=== PATIENT | male | born 1980 | race Caucasian/White ===

== ENCOUNTER 2018-08-23 10:27 | Emergency (ER) | payer OTHER ==
[2018-08-23] MEDS ORDERED: SODIUM CHLORIDE 0.9% 1,000 ML IV ONE (11:37)
[2018-08-23] MEDS ORDERED: fentaNYL 100 MCG/2 ML VIAL IVP STA (11:37)
[2018-08-23] MEDS ORDERED: ONDANSETRON 4 MG/2 ML VIAL IVP STA (11:37)
--- NOTE | 2018-08-23 11:50 | XRAY Report ---
Reason: injury Procedure Date: 08/23/2018 Accession Number: [id number] / [id number] Procedure: XR - Knee 2 View LT CPT Code: FULL RESULT: EXAM: LEFT KNEE RADIOGRAPHY EXAM DATE: 08/23/2018 11:21 AM. CLINICAL HISTORY: Left knee pain. COMPARISON: None. TECHNIQUE: 3 views. FINDINGS: Bones: Normal. No fractures or bone lesions. Joints: Normal. No effusion. No subluxations. Soft Tissues: Normal. No soft tissue swelling. IMPRESSION: Normal knee radiography. RADIA
--- NOTE | 2018-08-23 11:51 | XRAY Report ---
Reason: left rib pain Procedure Date: 08/23/2018 Accession Number: [id number] / [id number] Procedure: XR - Ribs w/PA Chest LT CPT Code: FULL RESULT: EXAM: LEFT RIB RADIOGRAPHY EXAM DATE: 08/23/2018 11:21 AM. CLINICAL HISTORY: LEFT rib pain. COMPARISON: None. TECHNIQUE: 1 view of the chest and 2 views of the ribs. FINDINGS: Bones: No displaced fracture or bone lesion. Lungs: No focal opacities. No pneumothorax. No pleural effusions. Mediastinum: Heart and mediastinal contours are unremarkable. Other: None. IMPRESSION: No displaced rib fracture or acute cardiopulmonary abnormality. RADIA
[2018-08-23 11:59] LABS: BASOPHILS # (AUTO) 0.1 10^3/uL (0.0-0.1); BASOPHILS % (AUTO) 0.8 %; EOSINOPHILS # (AUTO) 0.2 10^3/uL (0.0-0.7); EOSINOPHILS % (AUTO) 2.4 %; HGB - HEMOGLOBIN 15.9 g/dL (14.0-18.0); LYMPHOCYTES # (AUTO) 1.6 10^3/uL (1.5-3.5); LYMPHOCYTES % (AUTO) 17.6 %; MEAN CORPUSCULAR HGB CONC 35.3 g/dL (32.0-36.0); MEAN CORPUSCULAR VOLUME 87.8 fL (80.0-94.0); MEAN PLATELET VOLUME 9.1 fL (7.4-11.4); MONOCYTES # (AUTO) 0.8 10^3/uL (0.0-1.0); MONOCYTES % (AUTO) 8.6 %; NEUTROPHILS # (AUTO) 6.3 10^3/uL (1.5-6.6); NEUTROPHILS % (AUTO) 70.6 %; PLT - PLATELET COUNT 258 10^3/uL (130-450); RED BLOOD COUNT 5.12 10^6/uL (4.70-6.10); RED CELL DISTRIBUTION WIDTH 13.4 % (12.0-15.0)
[2018-08-23 12:08] LABS: ALBUMIN 4.6 g/dL (3.2-5.5); ALBUMIN/GLOBULIN RATIO 1.5 (1.0-2.2); BILIRUBIN,TOTAL 0.9 mg/dL (0.2-1.0); CALCIUM 8.9 mg/dL (8.5-10.3); CREATININE 0.9 mg/dL (0.6-1.2); TOTAL PROTEIN 7.6 g/dL (6.7-8.2)
[2018-08-23] MEDS ORDERED: IOPAMIDOL-300 100 ML VIAL ONE (12:10)
--- NOTE | 2018-08-23 12:11 | ED Physician Documentation ---
PD HPI Fall - Stated complaint Stated Complaint: L SIDE/KNEE INJ - Chief complaint Chief Complaint: General - History obtained from History obtained from: Patient - Additional information Additional information: 37-year-old male presents to the emergency department with left lower chest and left upper abdominal pain and left knee pain after falling off a ladder. The patient's ladder malfunctioned and the patient came crashing down and subsequently landed on his left lower chest/upper abdomen. No reports of head or neck injury or upper extremity trauma. Symptoms are described as moderate. The patient reports no nausea or vomiting. No other associated symptoms. No relieving factors. Review of Systems Constitutional: denies: Fever Eyes: denies: Discharge Ears: denies: Ear pain Throat: denies: Sore throat Cardiac: reports: Chest pain / pressure Respiratory: denies: Cough, Hemoptysis, Wheezing GI: reports: Abdominal Pain. denies: Nausea, Vomiting : denies: Dysuria Skin: denies: Rash Musculoskeletal: reports: Extremity pain. denies: Neck pain, Back pain, Extremity swelling Neurologic: denies: Generalized weakness Immunocompromised: denies: Chemotherapy PD PAST MEDICAL HISTORY - Past Medical History Past Medical History: Yes Neuro: Migraines GI: GERD - Present Medications Home Medications: Ambulatory Orders Medication Instructions Recorded Confirmed Butalb/Acetaminophen/Caffeine 1 each PO DAILY PRN 08/23/18 08/23/18 [Fioricet 50-300-40 mg Capsule] HYDROcod/ACETAM 5/325 [Sandy 5/325] 1 each PO Q6H PRN #15 tablet 08/23/18 Naproxen [Naprosyn] 500 mg PO BID PRN 30 Days #30 08/23/18 tablet Omeprazole Magnesium [Prilosec] 10 mg PO DAILY 08/23/18 08/23/18 - Allergies Allergies/Adverse Reactions: Allergies Allergy/AdvReac Type Severity Reaction Status Date / Time No Known Drug Allergies Allergy Verified 08/23/18 10:52 - Social History Does the pt smoke?: No Smoking Status: Never smoker Does the pt drink ETOH?: Yes Does the pt have substance abuse?: No - Immunizations Immunizations are current?: Yes PD ED PE NORMAL - General General: Alert and oriented X 3 - HEENT HEENT: Atraumatic, PERRL, EOMI, Ears normal, Moist mucous membranes - Neck Neck: No bony TTP - Cardiac Cardiac: RRR, Strong equal pulses - Respiratory Respiratory: No respiratory distress, Clear bilaterally - Abdomen Abdomen: Non tender - Back Back: No CVA TTP - Derm Derm: Normal color - Extremities Extremities: No deformity, Normal ROM s pain. No: No tenderness to palpate (The patient is tender to palpation in the left knee, there is no crepitus or obvious deformity. Normal range of motion of bilateral hips ankles and feet.), No edema - Neuro Neuro: Alert and oriented X 3, Normal speech - Psych Psych: Normal mood PD ED PE EXPANDED - Abdomen Abdomen: Tender to palpation Abdomen Visual: 1 - tenderness (The patient has significant tenderness over this area, there is no crepitus or subcutaneous emphysema. The patient is tender over the spleen. No rebound or peritoneal signs) Results - Vitals Vitals: Vital Signs - 24 hr 08/23/18 08/23/18 10:49 13:09 Temperature 36.6 C 36.2 C L Heart Rate 80 74 Respiratory 16 16 Rate Blood Pressure 140/74 H 128/79 O2 Saturation 100 99 Oxygen O2 Source Room air - Labs Labs: Laboratory Tests 08/23/18 08/23/18 11:52 11:52 WBC 9.0 RBC 5.12 Hgb 15.9 Hct 45.0 MCV 87.8 MCH 31.0 MCHC 35.3 RDW 13.4 Plt Count 258 MPV 9.1 Neut # (Auto) 6.3 Lymph # (Auto) 1.6 [place] # (Auto) 0.8 Eos # (Auto) 0.2 Baso # (Auto) 0.1 Absolute Nucleated RBC 0.00 Nucleated RBC % 0.0 Sodium 136 Potassium 3.6 Chloride 100 L Carbon Dioxide 27 Anion Gap 9.0 BUN 14 Creatinine 0.9 Estimated GFR (MDRD) 95 Glucose 99 Calcium 8.9 Total Bilirubin 0.9 AST 36 ALT 50 Alkaline Phosphatase 63 Total Protein 7.6 Albumin 4.6 Globulin 3.0 Albumin/Globulin Ratio 1.5 Lipase 31 - Rads (name of study) Knee Radiology: Final report received CT abd/pelvis Radiology: Final report received, See rad report PD MEDICAL DECISION MAKING - ED course ED course: The patient's workup shows an acute rib fracture, the patient appears appropriate for ongoing outpatient management. The patient will be given an incentive spirometer in the emergency department. The patient will be discharged home with pain control. I discussed warning signs and recommended returning to the emergency department immediately for any worsening or any concerns. Departure - Departure Disposition: 01 Home, Self Care Clinical Impression: Rib fracture Qualifiers: Encounter type: initial encounter Rib fracture type: single rib Fracture type: closed Laterality: left Qualified Code(s): S22.32XA - Fracture of one rib, left side, initial encounter for closed fracture Abdominal wall contusion Qualifiers: Encounter type: initial encounter Qualified Code(s): S30.1XXA - Contusion of abdominal wall, initial encounter Knee contusion Qualifiers: Encounter type: initial encounter Laterality: left Qualified Code(s): S80.02XA - Contusion of left knee, initial encounter Fall Qualifiers: Encounter type: initial encounter Qualified Code(s): W19.XXXA - Unspecified fall, initial encounter Condition: Good Instructions: ED Contusion Soft Tissue, ED Fx Rib Prescriptions: HYDROcod/ACETAM 5/325 [Sandy 5/325] 1 each PO Q6H PRN #15 tablet PRN Reason: Pain Naproxen [Naprosyn] 500 mg PO BID PRN 30 Days #30 tablet PRN Reason: Pain Comments: Please follow-up with primary care for recheck and reevaluation. Please return to the emergency department immediately for worsening symptoms or any concerns.
[2018-08-23 13:10] VITALS: BP 128/79
--- NOTE | 2018-08-23 13:12 | CT Report ---
Reason: LUQ pain, fall off ladder Procedure Date: 08/23/2018 Accession Number: [id number] / [id number] Procedure: CT - Abdomen/Pelvis W/ CPT Code: FULL RESULT: EXAM: CT ABDOMEN AND PELVIS EXAM DATE: 08/23/2018 12:21 PM. CLINICAL HISTORY: LUQ pain, fall off ladder. COMPARISONS: None. TECHNIQUE: Routine helical CT imaging was performed through the abdomen and pelvis. IV contrast: ISOVUE 300 100mL. Enteric contrast: No. Reconstructions: Coronal and sagittal. In accordance with CT protocol optimization, one or more of the following dose reduction techniques were utilized for this exam: automated exposure control, adjustment of mA and/or KV based on patient size, or use of iterative reconstructive technique. FINDINGS: Lung Bases: Clear. Normal heart size. No pericardial effusion. Liver: Normal. No masses. Gallbladder/Bile Ducts: Unremarkable. Spleen: Normal. Pancreas: Normal. Adrenal Glands: Normal. Kidneys: Normal. No masses or hydronephrosis. Peritoneal Cavity/Bowel: Mild sigmoid diverticulosis. No free fluid, free air or adenopathy. No masses or acute inflammatory process. The appendix is well visualized and normal. Pelvic Organs: Normal. The bladder and visualized pelvic organs are within normal limits. Vasculature: No aneurysms or other significant abnormality. Bones: There is a nondisplaced fracture of the lateral left seventh rib underlying the metallic BB skin marker indicating the patient's reported area of focal pain. Bone island right femoral head. Other: None. IMPRESSION: Nondisplaced lateral left seventh rib fracture. RADIA
[2018-08-25] MEDS ORDERED: IOPAMIDOL-300 100 ML VIAL IVP ONE (13:59)
== END 2018-08-23 13:38 | disposition home or self-care (01) ==
LOC: ED 10:27
DX: S22.32XA Fracture of one rib, left side, initial encounter for closed fracture (principal); S30.1XXA Contusion of abdominal wall, initial encounter; S80.02XA Contusion of left knee, initial encounter; W11.XXXA Fall on and from ladder, initial encounter
CPT/HCPCS: 36415; 71101; 73560; 74177; 80053; 83690; 85025; 96361; 96374; 96375; 99283; Q9967

== ENCOUNTER 2019-05-06 22:08 | Emergency (ER) | payer OTHER ==
[2019-05-06 22:14] VITALS: BP 153/100
[2019-05-06] MEDS ORDERED: IBUPROFEN 800 MG TABLET PO STA (22:32)
[2019-05-06] MEDS ORDERED: BACITRACIN OINT TOP STA (22:32)
--- NOTE | 2019-05-06 22:34 | ED Physician Documentation ---
History of Present Illness - Stated complaint Stated Complaint: BILAT HAND HARRELL - Chief complaint Chief Complaint: Burn - History obtained from History obtained from: Patient - History of Present Illness Timing: How many hours ago (2) Pain level max: 5 Pain level now: 5 - Additonal information Additional information: 38-year-old male was cooking squash when hot oil splashed on his right hand, struck the dorsum of the fourth and fifth digits. He is right-handed. Has blistering there now. Did not take anything for pain. Neurovascularly intact worse with movement and better with rest. Review of Systems Constitutional: denies: Fever GI: denies: Vomiting PD PAST MEDICAL HISTORY - Past Medical History Past Medical History: Yes Neuro: Migraines GI: GERD - Past Surgical History Past Surgical History: No - Present Medications Home Medications: Ambulatory Orders Medication Instructions Recorded Confirmed Butalb/Acetaminophen/Caffeine 1 each PO DAILY PRN 08/23/18 08/23/18 [Fioricet 50-300-40 mg Capsule] HYDROcod/ACETAM 5/325 [[place] 5/325] 1 each PO Q6H PRN #15 tablet 08/23/18 Naproxen [Naprosyn] 500 mg PO BID PRN 30 Days #30 08/23/18 tablet Omeprazole Magnesium [Prilosec] 10 mg PO DAILY 08/23/18 08/23/18 Bacitracin Zinc Oint 1 applic TOP BID #1 tube 05/06/19 Ibuprofen [Motrin] 800 mg PO Q8H PRN #30 tablet 05/06/19 - Allergies Allergies/Adverse Reactions: Allergies Allergy/AdvReac Type Severity Reaction Status Date / Time No Known Drug Allergies Allergy Verified 05/06/19 22:14 - Social History Does the pt smoke?: No Smoking Status: Never smoker Does the pt drink ETOH?: Yes Does the pt have substance abuse?: No - Immunizations Immunizations are current?: Yes - POLST Patient has POLST: No PD ED PE NORMAL - Vitals Vital signs reviewed: Yes - General General: Alert and oriented X 3, No acute distress - HEENT HEENT: Moist mucous membranes - Neck Neck: Supple, no meningeal sign - Derm Derm: Warm and dry - Neuro Neuro: Alert and oriented X 3 PD ED PE EXPANDED - Extremities LENA UE/Hands Visual: 1 - swelling (mild blistering. NVI. partial thickness harrell. not circumferential.) Results - Vitals Vitals: Vital Signs - 24 hr 05/06/19 22:11 Temperature 36.5 C Heart Rate 74 Respiratory 17 Rate Blood Pressure 153/100 H O2 Saturation 98 Oxygen O2 Source Room air PD MEDICAL DECISION MAKING - ED course Complexity details: considered differential, d/w patient ED course: Patient with R hand blistering after a hot oil burn. NVI. Td UTD. no circumferential harrell. Will follow up with his doctor for wound checks. Patient counseled regarding signs and symptoms for which I believe and urgent re- evaluation would be necessary. Patient with good understanding of and agreement to plan and is comfortable going home at this time This document was made in part using voice recognition software. While efforts are made to proofread this document, sound alike and grammatical errors may occur. Departure - Departure Disposition: 01 Home, Self Care Clinical Impression: Burn of right hand including fingers Qualifiers: Encounter type: initial encounter Burn degree: partial thickness (2nd degree) Qualified Code(s): T23.201A - Burn of second degree of right hand, unspecified site, initial encounter; T23.231A - Burn of second degree of multiple right fingers (nail), not including thumb, initial encounter Condition: Good Instructions: ED Burn D 2nd Follow-Up: Abraham Wahl MD [Primary Care Provider] - Within 3 Days Prescriptions: Bacitracin Zinc Oint 1 applic TOP BID #1 tube Ibuprofen [Motrin] 800 mg PO Q8H PRN #30 tablet PRN Reason: PAIN &/OR FEVER Comments: You can apply bacitracin to the wounds. Return if you worsen. Follow-up with your doctor within 3 days for wound check. Return if you notice redness, swelling or drainage from the wound.
== END 2019-05-06 22:50 | disposition home or self-care (01) ==
LOC: ED 22:08
DX: T23.261A Burn of second degree of back of right hand, initial encounter (principal); T23.231A Burn of second degree of multiple right fingers (nail), not including thumb, initial encounter; T79.9XXA Unspecified early complication of trauma, initial encounter; X10.2XXA Contact with fats and cooking oils, initial encounter; Y93.G3 Activity, cooking and baking
CPT/HCPCS: 99282; 99283; A9270

== ENCOUNTER 2021-03-17 08:00 | Outpatient (CLI) | payer OTHER ==
[2021-03-17 17:10] LABS: CALCIUM 9.2 mg/dL (8.5-10.3); CREATININE 0.9 mg/dL (0.6-1.2); URIC ACID 9.1 mg/dL (2.6-7.2)
== END 2021-03-17 23:59 | disposition home or self-care (01) ==
LOC: LAB.N 08:00
PROVIDERS: ATTEND Family Medicine
DX: M77.41 Metatarsalgia, right foot (principal)
CPT/HCPCS: 36415; 80048; 84550

== ENCOUNTER 2021-03-17 10:56 | Outpatient (CLI) | payer OTHER ==
--- NOTE | 2021-03-17 20:50 | XRAY Report ---
PROCEDURE: Foot 3 View RT INDICATIONS: RIGHT METATARSALGIA TECHNIQUE: 3 views of the foot were acquired. COMPARISON: None FINDINGS: Bones: No fractures or dislocations. No suspicious bony lesions. Soft tissues: No tibiotalar joint effusion. Achilles tendon appears normal. IMPRESSION: No significant plain film abnormality is seen. Reviewed by: Robert Denton MD on 03/17/2021 7:49 PM TAMEKA Approved by: Robert Denton MD on 03/17/2021 7:49 PM TAME[facility] Station ID: [id number]
== END 2021-03-17 10:57 | disposition home or self-care (01) ==
LOC: DI.N 10:56
PROVIDERS: ATTEND Family Medicine
DX: M77.41 Metatarsalgia, right foot (principal)
CPT/HCPCS: 36415; 80048; 84550

== ENCOUNTER 2022-02-01 13:30 | Outpatient (CLI) | payer OTHER ==
[2022-02-01 14:22] VITALS: BP 132/104
--- NOTE | 2022-02-01 14:22 | SLEEP CARE CONSULTATION ---
Information from patient questionnaire entered by Robert Bautitsa MA. I have reviewed and concur with the information entered by Robert Bautista MA. This document represents the service I personally performed and the decisions made by , Mita Beasley ARNP. History of Present Illness Service Date and Time: 02/01/2022 1330 Reason for Visit: New patient (ON CPAP, RESMED, ), sleep apnea on CPAP therapy, Re-establish care Chief Complaint: reports: Other (UPDATE SUPPLIES) Date of Onset: 3 PLUS YEARS Usual bedtime: 10 PM Time it takes to fall asleep: 10 MINUTE Snores at night: No Observed to quit breathing while asleep: Yes Sleeps alone due to snoring: Yes Number of times waking at night: 2 Reasons for waking at night: reports: Other Toss, Turn, or Twitch while sleeping: Yes Recalls having dreams: No Usually gets out of bed at: 0630 Feels refreshed in the morning: Yes Morning headache: No Sleepy or fatigued during the day: No Ever fallen asleep while driving: No Takes day naps: No Dreams during day naps: No Prior sleep studies: Yes Year and Where: [facility] Type of Sleep Study: Polysomnography Additional HPI information: EVIE LOPEZ was previously diagnosed to have extremely severe, AHI 101, obstructive sleep apnea-hypopnea syndrome and comes in today to establish care for CPAP therapy. - Parasomnia Symptoms Ever been unable to move upon waking from sleep: No Walks in sleep: No Talks in sleep: No Ever acted out dreams in sleep: No Ever felt weak in the knees when startled or emotional: No Bothered by creepy, crawly, restless sensations in legs: No Problems with memory or concentration: Yes CPAP Compliance Data - Data Reviewed with Patient Average duration of nightly device use: 6.5 hours Compliance rate %: 86 (30 days; used , 4+ ) Current pressure setting (cmH2O): 9-16 (mean pressure 9.6) Average residual AHI: 0.2 Central apnea: 0.1 Average large leak: 17 L/min Compliance data discussion: He is using [employer] for his supplies. He has an [employer] Airsense 10 that is a loaner because his other machine was malfunctioning. He is using a [employer] Dreamwear full face mask with medium cushion. He does have a back up mask. He needs a new prescription to replace his older device. Subjective Patient concerns: denies: aerophagia, mask discomfort, air blowing in eyes, mask leak noise, condensation in mask/hose, nasal congestion, dry mouth, nose, throat, epistaxis, other Observed to snore while using device: No Current pressure setting perceived as: comfortable On therapy, patient: reports: sleeping better, awakening more refreshed, being more awake and alert during the day, more rested overall. denies: drowsiness while driving Initial [place] Sleepiness Scale score: 10 (01/2022) Past Medical History Past Medical History: reports: GERD Social History The patient's occupation is a RE. Patient is and lives in [place]. Have you smoked in the past 12 months: No Alcohol use: Yes Alcohol amount and frequency: 3 X WEEKLY Caffeine use: Yes Caffeine amount and frequency: 1 X DAILY Family History Family history of sleep disordered breathing: No (UNKNOWN) Allergies and Home Medications Known drug allergies: No Drug allergies reviewed: Yes (NKDA) Home medication list reviewed: Yes Allergy and home medication list: Allergies No Known Drug Allergies Allergy (Verified 05/06/19 22:14) Medication: Omeprazole Lipitor Review of Systems Gastrointestinal: reports: heartburn, diarrhea Neurological: reports: headaches Ear/Nose/Throat: reports: sinus problems, wisdom teeth removed Musculoskeletal: reports: joint pain, neck pain, back pain, muscle pain or cramping Immunologic: reports: rash Physical Exam Vital signs obtained and entered by: Huma BAUTISTA CMA [facility] Blood Pressure: 132/104 (RIGHT, PULSE 85, RESP 18, ) Cuff size: wrist Heart Rate: 81 O2 Saturation: 96 (PAPER) Height: 6 ft 2 in Weight: 235 lb Body Mass Index: 30.2 BMI Classification: Obese Neck circumference: 16 (INCHES) Heart: regular rate and rhythm Lungs: clear bilaterally Impression and Plan 1. Obstructive Sleep Apnea-Hypopnea Syndrome, extremely severe, with good treatment compliance and good apnea control. On CPAP therapy, the patient has better sleep quality and is more rested overall. He last had a sleep study in 2019 with [facility] and had an AHI of 101. His CPAP started making loud noises and he took it to his fflick for repair. His insurance would not pay for repair but would pay for a replacement machine but he needed a current prescription. We established care with him today and he was able to get us a copy of his last sleep study. I will make a prescription to update his device. A DWO prescription will be made. Compliance guidelines for new device and follow up discussed. He voiced understanding. Patient's apnea severity and rationale for treatment to reduce apnea, improve sleep quality and reduce cardiovascular and cerebrovascular events was reviewed. I also reviewed the benefit of consistent device use of CPAP for gastric reflux. * Continue auto CPAP pressure at 9-16 cmH2O * Update device * Notify me if snoring with mask or feeling that the pressure is too much or too little * Attempt to lose weight * Call this office if any problems using CPAP * Return for follow up one month after obtaining new device, or sooner if concerns arise Counseling Topics: Spare mask, Weight loss health impact Visit Type: In Office Time Spent with Patient (minutes): 31 Provider Statement: I spent 100% of the Face to Face Visit with the patient with greater than 50% spent counseling the patient and coordination of care.
== END 2022-02-01 13:31 | disposition home or self-care (01) ==
LOC: SC 13:30
PROVIDERS: ATTEND Nurse Practitioner Family
DX: G47.33 Obstructive sleep apnea (adult) (pediatric) (principal); E66.9 Obesity, unspecified; Z68.30 Body mass index [BMI] 30.0-30.9, adult
CPT/HCPCS: 99203; 99212